=== PATIENT | female | born 2005 | race Caucasian/White ===

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

== ENCOUNTER → 2023-08-30 | Outpatient (CLI) | payer MEDICAID ==
[2023-08-30 14:11] LABS: BASO # 0.02 K/mm3 (0.02-0.10); EOS # 0.05 K/mm3 (0.04-0.40); EOS % 1.1 % (0.1-4.0); HEMATOCRIT 40.4 % (35.0-45.0); LYMPH# 1.45 K/mm3 (1.20-3.40); MEAN CELL VOLUME 90 fl (78-95); MEAN CORPUSCULAR HEMOGLOBIN 29 pg (26-32); MEAN CORPUSCULAR HGB CONC 32 g/dL (33-37); MEAN PLATELET VOLUME 8.8 fl (7.4-10.4); MONO # 0.35 K/mm3 (0.10-0.60); NEU # 2.62 K/mm3 (1.40-6.50); PLATELET COUNT 279 K/mm3 (130-400); RED BLOOD COUNT 4.51 M/mm3 (4.10-5.30); RED CELL DISTRIBUTION WIDTH 12.7 % (11.5-14.5); WHITE BLOOD COUNT 4.5 K/mm3 (4.8-10.8)
== END ==
LOC: LAB 14:00
PROVIDERS: Physician Assistant
DX: O03.9 Complete or unspecified spontaneous abortion without complication (principal)

== ENCOUNTER → 2023-10-27 | Outpatient (CLI) | payer SELFPAY ==
[2023-10-27 08:33] LABS: BASO # 0.01 K/mm3 (0.02-0.10); EOS # 0.05 K/mm3 (0.04-0.40); EOS % 0.8 % (0.1-4.0); HEMATOCRIT 40.5 % (35.0-45.0); HEMOGLOBIN 13.1 g/dL (12.0-15.0); LYMPH# 0.96 K/mm3 (1.20-3.40); MEAN CELL VOLUME 91 fl (78-95); MEAN CORPUSCULAR HEMOGLOBIN 29 pg (26-32); MEAN CORPUSCULAR HGB CONC 32 g/dL (33-37); MEAN PLATELET VOLUME 8.9 fl (7.4-10.4); MONO # 0.49 K/mm3 (0.10-0.60); NEU # 5.07 K/mm3 (1.40-6.50); PLATELET COUNT 250 K/mm3 (130-400); RED BLOOD COUNT 4.45 M/mm3 (4.10-5.30); RED CELL DISTRIBUTION WIDTH 13.4 % (11.5-14.5); WHITE BLOOD COUNT 6.6 K/mm3 (4.8-10.8)
[2023-10-27 08:42] LABS: ALBUMIN 4.4 g/dL (3.5-5.0)
[2023-10-27 08:43] LABS: CALCIUM 9.2 mg/dL (8.3-10.5)
[2023-10-27 08:45] LABS: TOTAL PROTEIN 6.9 g/dL (6.4-8.3)
[2023-10-27 08:46] LABS: TOTAL BILIRUBIN 0.7 mg/dL (0.2-1.2)
== END ==
LOC: LAB 08:14
PROVIDERS: Physician Assistant
DX: Z13.220 Encounter for screening for lipoid disorders (principal); R07.9 Chest pain, unspecified